=== PATIENT | male | born 1965 | race Caucasian/White ===

== ENCOUNTER 2018-01-06 07:28 | Emergency (ER) | payer OTHER ==
[~2018-01-06] VITALS: Ht 182.9 cm; Wt 68.4 kg
[2018-01-06 07:38] VITALS: BP 118/56; PULSE 112; RESP 16; TEMP 97.9; O2SAT 96
[2018-01-06] MEDS ORDERED: ORPH100T2 PO (07:59)
[2018-01-06] MEDS ORDERED: MEDR4PAK PO (07:59)
[2018-01-06] MEDS ORDERED: ORPHENADRINE INJ 60 MG/2 ML AMP IM ONE (08:00)
[2018-01-06] MEDS ORDERED: KETOROLAC TROMETHAMINE 60 MG/2 ML (IM) VIAL IM ONE (08:00)
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
== END 2018-01-06 08:30 | disposition home or self-care (01) ==
LOC: PHED 07:28 → EDBD 07:28 → PHED 08:30
DX: M54.5 Low back pain (principal); G89.29 Other chronic pain
CPT/HCPCS: 96372; 99283; J1885; J2360